=== PATIENT | male | born 1995 | race Hispanic/Latino ===

== ENCOUNTER 2022-01-18 15:12 | Emergency (ER) | payer SELFPAY ==
[2022-01-18 15:47] LABS: Bilirubin Small (Negative); Blood, Urine Moderate (Negative); Clarity Slightly Cloudy (Clear); Glucose, Urine (Dipstick) Negative (Negative); Ketone, Urine 80 mg/dL (Negative); Leukocyte Negative (Negative); Nitrite Negative (Negative); Protein, Urine (Dipstick) 30 mg/dL (Neg-Trace); Urobilinogen 0.2 mg/dL (Less than 2); pH, Urine 5.5 (5.0-9.0)
[2022-01-18 15:57] LABS: Specific Gravity, Urine 1.032 (1.002-1.036)
[2022-01-18 16:06] LABS: WBC/HPF None Seen HPF (0-3)
[2022-01-18 16:07] LABS: Bacteria/HPF None Seen HPF (None Seen); Mucous/LPF 1+ LPF (<2+); Squamous Epithelial 0-3 HPF (0-3)
[2022-01-18] MEDS ORDERED: Ibuprofen 800 MG TAB ONE (16:44)
[2022-01-19 20:57] LABS: Chlam.trachomatis by PCR,Urine Not Detected (NotDetected)
== END 2022-01-18 16:52 | disposition home or self-care (01) ==
LOC: BURERS 15:12
DX: N47.2 Paraphimosis (principal)
CPT/HCPCS: 81003; 81015; 87491; 87591; 99283